=== PATIENT | female | born 1995 ===

== ENCOUNTER 2017-04-18 14:30 | Emergency (ER) | payer OTHER ==
[2017-04-18] MEDS ORDERED: Ibuprofen TAB* 400 MG PO ONE (16:28)
--- NOTE | 2017-04-18 16:30 | UC ---
Throat Pain/Nasal Shadi HPI - HPI Summary HPI Summary: Patient has had 2 days of fever, chills, sore throat, ear ache, congestion. myalgias - History of Current Complaint Chief Complaint: UCGeneralIllness Stated Complaint: COUGH,SINUSES Time Seen by Provider: 04/18/17 16:19 Hx Obtained From: Patient Hx Last Menstrual Period: less than one month ?: No Onset/Duration: Sudden Onset, Lasting Days Severity: Moderate Cough: Nonproductive Associated Signs & Symptoms: Positive: Dysphagia, Sinus Discomfort, Fever - Allergies/Home Medications Allergies/Adverse Reactions: Allergies Allergy/AdvReac Type Severity Reaction Status Date / Time Doxycycline [From Doryx] Allergy Stomach Verified 04/18/17 15:20 Cramps Sulfa Antibiotics Allergy Stomach Verified 04/18/17 15:20 Cramps Home Medications: Home Medications Calcium Carbonate CHEW TAB* [Tums*] 1,000 mg PO SEE INSTRUCTIONS PRN 04/18/17 [ History Confirmed 04/18/17] Melatonin 3 mg PO BEDTIME PRN 04/18/17 [History Confirmed 04/18/17] PMH/Surg Hx/FS Hx/Imm Hx Previously Healthy: Yes - Surgical History Surgical History: Yes Surgery Procedure, Year, and Place: right patella - Family History Known Family History: Positive: Hypertension - Social History Alcohol Use: Occasionally Substance Use Type: None Smoking Status (MU): Never Smoked Tobacco Review of Systems Constitutional: Negative Skin: Negative Eyes: Negative ENT: Sore Throat, Ear Ache, Nasal Discharge, Sinus Congestion Respiratory: Cough Cardiovascular: Negative Gastrointestinal: Negative Genitourinary: Negative Motor: Negative Neurovascular: Negative Musculoskeletal: Arthralgia, Myalgia Neurological: Headache Psychological: Negative Is Patient Immunocompromised?: No All Other Systems Reviewed And Are Negative: Yes Physical Exam Triage Information Reviewed: Yes Appearance: Well-Nourished, Ill-Appearing, Pain Distress Vital Signs: Initial Vital Signs Temp 100.6 F 04/18/17 15:09 Pulse 120 04/18/17 15:09 Resp 22 04/18/17 15:09 BP 118/73 04/18/17 15:09 Pulse Ox 100 04/18/17 15:09 Vital Signs Reviewed: Yes Eye Exam: Normal ENT: Positive: Pharyngeal erythema, TMs normal, Tonsillar swelling, Sinus tenderness Dental Exam: Normal Neck exam: Normal Neck: Positive: Supple, Nontender Respiratory Exam: Normal Respiratory: Positive: Chest non-tender, Lungs clear, Normal breath sounds Cardiovascular Exam: Normal Cardiovascular: Positive: No Murmur, Pulses Normal, Tachycardia Abdominal Exam: Normal Abdomen Description: Positive: Nontender, No Organomegaly, Soft Bowel Sounds: Positive: Present Musculoskeletal Exam: Normal Musculoskeletal: Positive: Strength Intact, ROM Intact, No Edema Neurological Exam: Normal Neurological: Positive: Alert, Muscle Tone Normal Psychological Exam: Normal Skin Exam: Normal Throat Pain/Nasal Course/Dx - Course Course Of Treatment: hx obtained, exam performed, meds reviewed, strep negative , flu negative, UA negative, treated for symtpoms - Differential Dx/Diagnosis Differential Diagnosis/HQI/PQRI: Otitis Media, Pharyngitis, Sinusitis, URI Provider Diagnoses: pharyngitis. VILLALBA. cough Discharge - Discharge Plan Condition: Stable Disposition: HOME Patient Education Materials: Viral Syndrome (ED) Additional Instructions: 1. Take the medication as prescribed. 2. Continue with ibuprofen for pain and fever 3. Salt water gargles and nasal saline for sinus congestion
== END 2017-04-18 17:10 | disposition home or self-care (01) ==
LOC: UCCORT 14:30
DX: J02.9 Acute pharyngitis, unspecified (principal); Z88.2 Allergy status to sulfonamides; Z88.8 Allergy status to other drugs, medicaments and biological substances
CPT/HCPCS: 81003; 87502; 87651; 99202; A9270-GY; G0463

== ENCOUNTER 2017-04-19 13:44 | Emergency (ER) | payer OTHER ==
--- NOTE | 2017-04-19 14:58 | UC ---
Throat Pain/Nasal Shadi HPI - HPI Summary HPI Summary: Here for f/u of sore throat. She says she feels better in general and fever is better as well as the headache. The sore throat is worse and there are some white spots on the left tonsil. She has no prior hx of ENT surgery. - History of Current Complaint Chief Complaint: UCRespiratory Stated Complaint: SORE THROAT Time Seen by Provider: 04/19/17 14:41 Hx Obtained From: Patient Hx Last Menstrual Period: 03/19/17 ?: No Onset/Duration: Gradual Onset, Lasting Days - two days in duration. Severity: Moderate Pain Scale Used: 0-10 Numeric - 6/10 Cough: None Associated Signs & Symptoms: Positive: Dysphagia, Fever - fever has resolved from yesterday.. Negative: Sinus Discomfort, Nasal Discharge, Vomiting, Rash - Epiglottits Risk Factors Epiglottis Risk Factors: Negative - Allergies/Home Medications Allergies/Adverse Reactions: Allergies Allergy/AdvReac Type Severity Reaction Status Date / Time Doxycycline [From Doryx] Allergy Stomach Verified 04/19/17 14:32 Cramps Sulfa Antibiotics Allergy Stomach Verified 04/19/17 14:32 Cramps PMH/Surg Hx/FS Hx/Imm Hx Previously Healthy: Yes - Surgical History Surgical History: Yes Surgery Procedure, Year, and Place: right patella - Family History Known Family History: Positive: Hypertension - Social History Occupation: Student Alcohol Use: Occasionally Substance Use Type: None Smoking Status (MU): Never Smoked Tobacco - Immunization History Most Recent Influenza Vaccination: no 2017 Review of Systems ENT: Sore Throat All Other Systems Reviewed And Are Negative: Yes Physical Exam Triage Information Reviewed: Yes Appearance: Well-Appearing, No Pain Distress, Well-Nourished Vital Signs: Initial Vital Signs Temp 98.2 F 04/19/17 14:28 Pulse 85 04/19/17 14:28 Resp 14 04/19/17 14:28 BP 129/81 04/19/17 14:28 Pulse Ox 100 04/19/17 14:28 Vital Signs Reviewed: Yes Eyes: Positive: Conjunctiva Clear ENT: Positive: Pharyngeal erythema - There is symmetrical swelling of the tonsils with craters and there is some stuck on white stuff in the crater in left. There is no exudate., TMs normal, Tonsillar swelling. Negative: Nasal congestion, Nasal drainage, TM bulging, TM dull, TM red, Tonsillar exudate, Trismus, Muffled voice, Hoarse voice, Dental tenderness, Sinus tenderness, Uvula midline Neck: Positive: Supple, Nontender, No Lymphadenopathy Respiratory: Positive: Chest non-tender, Lungs clear, Normal breath sounds, No respiratory distress, No accessory muscle use. Negative: Respiratory distress, Decreased breath sounds, Accessory muscle use, Crackles, Rhonchi, Stridor, Wheezing Cardiovascular: Negative: RRR, No Murmur, Pulses Normal, Brisk Capillary Refill Abdomen Description: Positive: Nontender, No Organomegaly, Soft. Negative: CVA Tenderness (R), CVA Tenderness (L), Distended, Guarding Musculoskeletal: Negative: Strength Intact, ROM Intact, No Edema Neurological: Negative: Alert, Muscle Tone Normal, Fatigued Psychological: Negative: Normal Response To Family, Age Appropriate Behavior, Abnormal Response To Family Skin: Negative: rashes Throat Pain/Nasal Course/Dx - Course Assessment/Plan: Strep and influenze neg yesterday. She has improved generally but there is some concern over the white spot in the left tonsillar crater. She will start decadron and then amoxicillin in two days if the sore throat does not improve before then. - Differential Dx/Diagnosis Differential Diagnosis/HQI/PQRI: Epiglottitis, Foreign Body, Influenza, Laryngitis, Henrique's Angina, Mononucleosis, Peritonsillar Abscess, Pharyngitis, Sinusitis, Tonsillitis, URI Provider Diagnoses: sore throat Discharge - Discharge Plan Condition: Good Disposition: HOME Prescriptions: Amoxicillin PO (*) [Amoxicillin 500 MG CAP*] 500 mg PO TID #21 cap Dexamethasone TAB* [Decadron TAB*] 2 mg PO BID #6 tab Patient Education Materials: Strep Throat (ED) Referrals: No Primary Care Phys,NOPCP [Primary Care Provider] - Additional Instructions: Return here for any worsening otherwise start the decadron today and start the amoxacillin in two days if not improving.
== END 2017-04-19 15:02 | disposition home or self-care (01) ==
LOC: UCCORT 13:44
DX: J02.9 Acute pharyngitis, unspecified (principal); R50.9 Fever, unspecified; Z88.1 Allergy status to other antibiotic agents; Z88.2 Allergy status to sulfonamides
CPT/HCPCS: 99212; G0463